=== PATIENT | female | born 1960 | race Caucasian/White ===

== ENCOUNTER 2016-11-30 22:23 | Emergency (ER) | payer SELFPAY ==
[~2016-11-30 22:23] MED LIST: ALTACE5 MG; CIPRO XR500 MG; METRONIDAZOLE500 MG; TRIAMTERENE-HCT1 T
== END 2016-11-30 23:05 | disposition left against medical advice (07) ==
LOC: EDMED 22:23
DX: M25.562 Pain in left knee (principal); Z53.21 Procedure and treatment not carried out due to patient leaving prior to being seen by health care provider